=== PATIENT | male | born 1970 | race African-American/Black ===

== ENCOUNTER 2020-09-29 05:09 | Emergency (ER) | payer OTHER ==
[~2020-09-29] VITALS: Ht 193 cm; Wt 110.2 kg
[2020-09-29 05:10] VITALS: Ht 193 cm; Wt 110.2 kg
[2020-09-29 06:15] VITALS: BP 155/71
== END 2020-09-29 06:15 | disposition home or self-care (01) ==
LOC: ED 05:09
DX: B34.9 Viral infection, unspecified (principal); Z20.828 Contact with and (suspected) exposure to other viral communicable diseases
CPT/HCPCS: U0003